=== PATIENT | male | born 1950 | race Caucasian/White ===

== ENCOUNTER → 2020-04-20 15:47 | Outpatient (BNVA) | payer MEDICARE, OTHER, SELFPAY | PROVIDERS: Family Provider Registered Nurse; Visit Provider Registered Nurse | DX: R39.15 Urgency of urination (principal); N52.9 Male erectile dysfunction, unspecified; N40.0 Benign prostatic hyperplasia without lower urinary tract symptoms; J30.9 Allergic rhinitis, unspecified; N41.0 Acute prostatitis; J30.89 Other allergic rhinitis | CPT/HCPCS: 81000; 84153 ==

== ENCOUNTER 2020-05-27 13:44 | Outpatient (CLI) | payer MEDICARE, OTHER, SELFPAY ==
--- NOTE | 2020-05-27 13:56 | XR_ITS ---
WS: [id number] Exam: XR chest 2V* [id number] Date/Time of Exam: 05/27/2020 2:00 PM Reason For Exam: J18.9 - Pneumonia, unspecified organism No priors. Large volume right-sided pleural effusion is noted with compressive atelectasis and consolidation in the middle and lower lobes the right lung. There is infiltrate in the ventilated aspects of the right upper lobe. The left lung is clear. The heart does not appear to be enlarged. The mediastinum is not widened. Small amount of soft tissue air identified just above the right clavicle and possibly katie g the right lower rib cage. Fracture of the posterior right seventh rib age indeterminate. Old fractu re of the left third rib. Recommendations: Contrast CT scanning of the chest might be considered for more detailed workup. XR/XR chest 2V* [id number] IMPRESSION: 1. Large volume right-sided pleural effusion with compressive atelectasis and c onsolidation in the middle and lower lobes the right lung. The ventilated right upper lobe also demonstrates some compression secondary to pleural effusion. T here is diffuse infiltrate in the ventilated right upper lobe. Overall, this ma y represent pneumonia however an underlying pulmonary mass should also be consi dered. 2. The left lung is clear. 3. Small amount of the subcutaneous emphysema seen along the right shoulder reg ion and possibly the lower right rib cage. Etiology is unclear. 4. Posterior right seventh rib fracture age indeterminate.
== END 2020-05-27 13:45 | disposition home or self-care (01) ==
PROVIDERS: PCP Registered Nurse; Visit Provider Registered Nurse
DX: J18.9 Pneumonia, unspecified organism (principal); J90 Pleural effusion, not elsewhere classified; J43.9 Emphysema, unspecified
CPT/HCPCS: 71046

== ENCOUNTER → 2021-02-22 08:47 | Outpatient (BNVA) | payer MEDICARE, OTHER, SELFPAY | PROVIDERS: PCP Registered Nurse; Visit Provider Registered Nurse | DX: L82.1 Other seborrheic keratosis (principal) | CPT/HCPCS: 88305 ==

== ENCOUNTER → 2021-12-16 11:24 | Outpatient (BNVA) | payer MEDICARE, OTHER, SELFPAY | PROVIDERS: PCP Registered Nurse; Visit Provider Registered Nurse | DX: I10 Essential (primary) hypertension (principal); J45.909 Unspecified asthma, uncomplicated; N52.9 Male erectile dysfunction, unspecified; J30.9 Allergic rhinitis, unspecified | CPT/HCPCS: 80053; 80061; 85025; G0103 ==

== ENCOUNTER → 2022-01-31 08:40 | Outpatient (BNVA) | payer MEDICARE, OTHER, SELFPAY | PROVIDERS: PCP Registered Nurse; Visit Provider Registered Nurse | DX: R73.9 Hyperglycemia, unspecified (principal) | CPT/HCPCS: 83036 ==

== ENCOUNTER → 2023-01-18 15:35 | Outpatient (BNVA) | payer MEDICARE, OTHER, SELFPAY | PROVIDERS: PCP Registered Nurse; Visit Provider Registered Nurse | DX: Z00.00 Encounter for general adult medical examination without abnormal findings (principal); I10 Essential (primary) hypertension; Z71.85 Encounter for immunization safety counseling; Z71.3 Dietary counseling and surveillance; Z13.1 Encounter for screening for diabetes mellitus | CPT/HCPCS: 80053; 80061; 85025 ==

== ENCOUNTER → 2024-08-15 11:27 | Outpatient (BNVA) | payer MEDICARE, OTHER, SELFPAY | PROVIDERS: PCP Registered Nurse; Visit Provider Registered Nurse | DX: L98.9 Disorder of the skin and subcutaneous tissue, unspecified (principal) | CPT/HCPCS: 88305 ==

== ENCOUNTER → 2024-12-03 14:50 | Outpatient (BNVA) | payer MEDICARE, OTHER, SELFPAY | PROVIDERS: PCP Registered Nurse; Visit Provider Family Medicine | DX: I10 Essential (primary) hypertension (principal) | CPT/HCPCS: 80048; 85025 ==